=== PATIENT | male | born 1955 | race Caucasian/White ===

== ENCOUNTER 2019-02-10 21:39 | Emergency (ER) | payer OTHER ==
[2019-02-10] MEDS ORDERED: OXYMETAZOLINE 30 ML NASAL SPRAY ONE (22:02)
[2019-02-10] MEDS ORDERED: SILVER NITRATE APPLICATOR 1 APPL TP ONE (22:02)
--- NOTE | 2019-02-10 22:02 | EDPHY ---
H & P Stated Complaint: BLOODY NOSE X 2 HOURS, STARTED WHEN BLOWING NOSE Time Seen by Provider: 02/10/19 22:02 HPI/ROS: HPI CHIEF COMPLAINT: Epistaxis after blowing nose. HISTORY OF PRESENT ILLNESS: Patient is a very pleasant 63-year-old male, otherwise healthy does have a history of prostate issues. Is not on any blood thinners, presents to the emergency room after he started blowing his nose 2 hr ago developed a nose bleed out of his left Nare. Patient states he blew his nose and developed this. No history of this. Not on anticoagulation. Denies any trauma. Past Medical History: Denies significant medical history Past Surgical History: Denies significant surgical history Social History: Denies drugs alcohol tobacco. Family History: Noncontributory ROS REVIEW OF SYSTEMS: 10 Systems were reviewed and negative with the exception of the elements mentioned in the history of present illness. Exam Constitutional triage nursing summary reviewed, vital signs reviewed, awake/ alert. Eyes normal conjunctivae and sclera, EOMI, PERRLA. HENT left [place]: Clotted blood dry present. normal inspection, atraumatic, moist mucus membranes, no epistaxis, neck supple/ no meningismus, no raccoon eyes. Respiratory clear to auscultation bilaterally, normal breath sounds, no respiratory distress, no wheezing. Cardiovascular rate normal, regular rhythm, no murmur, no edema, distal pulses normal. Gastrointestinal soft, non-tender, no rebound, no guarding, normal bowel sounds, no distension, no pulsatile mass. Genitourinary no CVA tenderness. Musculoskeletal no midline vertebral tenderness, full range of motion, no calf swelling, no tenderness of extremities, no meningismus, good pulses, neurovascularly intact. Skin pink, warm, & dry, no rash, skin atraumatic. Neurologic awake, alert and oriented x 3, AAOx3, moves all 4 extremities equally, motor intact, sensory intact, CN II-XII intact, normal cerebellar, normal vision, normal speech. Psychiatric normal mood/affect. Heme/Lymph/Immune no lymphadenopathy. Differential Diagnosis: Includes but is not limited to in a particular order epistaxis, anterior epistaxis, posterior epistaxis Medical Decision Making: Plan for this patient is bleeding has subsided since arriving to the emergency room. The nasal clamp was removed and will re- evaluate shortly. I did give him options about cauterization packing however he has declined this at this time he would like to see if it just resolved on its own. Re-evaluation: 2245 I did offer to pack the patient's nose, or cauterize, however he has declined this, the nasal bleeding has stopped on its own. He would like to go home. He does not want any further intervention. He understands return emergency room if he has recurrent nose bleed any cannot get this to stop. She follow up with ENT on outpatient basis as well. Source: Patient - Personal History Current Tetanus Diphtheria and Acellular Pertussis (TDAP): Yes - Medical/Surgical History Other PMH: PROSTATE CA - Social History Smoking Status: Never smoked Constitutional: Initial Vital Signs Heart Rate 70 02/10/19 21:42 Respiratory Rate 16 02/10/19 21:42 Blood Pressure 145/96 H 02/10/19 21:42 O2 Sat (%) 97 02/10/19 21:42 O2 Delivery Mode Room Air Allergies/Adverse Reactions: No Known Allergies Allergy (Unverified 12/11/09 10:49) Home Medications: Medication Instructions Recorded None 12/11/09 Dutasteride 02/10/19 Departure - Departure Disposition: Home, Routine, Self-Care Clinical Impression: Epistaxis Condition: Good Instructions: Nosebleed (ED) Additional Instructions: 1. If you have a recurrence of her nose bleed please apply the direct clamp tilt her head forward, direct pressure for 30 min. Return emergency room if he continues to bleed. Follow up with ENT. Referrals: Wei Flynn MD [Primary Care Provider] - As per Instructions Braeden Rao MD [Medical Doctor] - As per Instructions
[2019-02-10 22:53] VITALS: BP 135/86
== END 2019-02-10 22:52 | disposition home or self-care (01) ==
DX: R04.0 Epistaxis (principal)